=== PATIENT | male | born 1955 | race Caucasian/White ===

== ENCOUNTER → 2018-03-08 11:09 | Outpatient (CLI) | payer BC, SELFPAY ==
--- NOTE | 2018-03-08 | CYSPIN_PTH ---
PATIENT: PERLA PORTILLO LOC: #:[id number] AGE/SX: 70/M ROOM: RE03/08/[address]: LAURIE Santa : 1955 BED: DIS: SPEC #: [id number] RECD: 03/08/18 11:16 STATUS: GURINDER MALLORIE #: [id number] CARL: 03/08/18 00:[address]: Marilou Rooney NP DEPT: CYTOLOGY RECD BY: Burton Waller ENTERED: 03/08/18 12:07 SP TYPE: CYSPIN FL OTHR DR: MD Dr. Justino Plata MD Tissues: Urine Procedures: Pap Stain (control) Special Stain Group II Cytospin Fluid HEADER OPERATION: Not noted PRE-OP DIAGNOSIS: Hematuria R31.9 TISSUE SUBMITTED: Urine for cytology DIAGNOSIS CYTOLOGY Urine for cytology (cytospin): Negative for malignant cells. SJ:tiffany 03/09/18 CYTOLOGY STUDY Slides are reviewed. CYTOLOGY GROSS Received is 50 ml of clear yellow fluid labeled with the patient's name and and designated per the requisition as urine. Submitted for cytology preparation. 03/08/18 TC:5 CPT: 79056
[2018-03-08 11:17] LABS: Cytology, Body Fluid / CSF SEE PATHOLOGY REPORT
== END ==
PROVIDERS: Family Provider Family Medicine; Visit Provider Nurse Practitioner Adult Health
DX: R31.9 Hematuria, unspecified (principal)
CPT/HCPCS: 88108; 88313